=== PATIENT | male | born 1975 | race Caucasian/White ===

== ENCOUNTER 2016-06-21 09:06 | Day surgery (SDC) | payer MEDICAID ==
[2016-06-21 09:26] VITALS: BMI 31.6
[2016-06-21] MEDS ORDERED: Lactated Ringer's 500 ML IV ONE (09:27)
[2016-06-21 09:50] VITALS: O2SAT 100
[2016-06-21] MEDS ORDERED: Propofol 10 mg/ml Inj (20 ML) ONE (10:31)
[2016-06-21 11:12] VITALS: TEMP 96.7
[2016-06-21 11:29] VITALS: BP 120/70; PULSE 76; RESP 14
== END 2016-06-21 13:22 | disposition home or self-care (01) ==
LOC: H.ENDO 09:06
PROVIDERS: ATTEND Internal Medicine Gastroenterology
DX: Z12.11 Encounter for screening for malignant neoplasm of colon (principal); R12 Heartburn; K62.1 Rectal polyp; K57.30 Diverticulosis of large intestine without perforation or abscess without bleeding